=== PATIENT | female | born 1965 | race Two or more races ===

== ENCOUNTER 2017-01-13 08:42 | Emergency (ER) | payer MEDICAID ==
[~2017-01-13] VITALS: Ht 154.9 cm; Wt 76.2 kg
[~2017-01-13 08:42] MED LIST: IBUP-1955 PO; LEVO750T21 PO
--- NOTE | 2017-01-13 08:47 | NUR ---
RLQ ABDOMINAL PAIN RADIATES TO BACK, NAUSEA X 3 DAYS. AWAITING MD ORDER
[2017-01-13 09:20] LABS: BASOPHILS % (AUTO) 0.2 % (0.0-2.0); EOSINOPHILS % (AUTO) 0.4 % (0.0-6.0); HEMATOCRIT 40 % (33-45); HEMOGLOBIN 13.3 g/dL (11.5-14.8); LYMPHOCYTES # (AUTO) 1.7 /CMM (0.8-4.8); LYMPHOCYTES % (AUTO) 20.6 % (20.0-44.0); MEAN CORPUSCULAR HEMOGLOBIN 29 PG (26.0-33.0); MEAN CORPUSCULAR HGB CONC 34 g/dl (31.0-36.0); MEAN CORPUSCULAR VOLUME 86 fL (82-100); MONOCYTES # (AUTO) 0.7 /CMM (0.1-1.30); NEUTROPHILS # (AUTO) 5.8 /CMM (1.8-8.9); NEUTROPHILS % (AUTO) 70.8 % (43.0-81.0); PLATELET COUNT (AUTO) 225 /CMM (150-450); RDW COEFFICIENT OF VARIATION 13.4 (11.5-15.0); RED BLOOD CELL COUNT(AUTO) 4.59 MIL/uL (4.0-5.2); WHITE BLOOD COUNT (AUTO) 8.1 K/uL (4.3-11.0)
--- NOTE | 2017-01-13 09:21 | NUR ---
URINE SAMPLE COLLECTED SENT TO LAB
--- NOTE | 2017-01-13 09:21 | NUR ---
DR BRUNO AT BEDSIDE FOR EVAL
[2017-01-13] MEDS ORDERED: ONDANSETRON HCL/PF 4 MG/2 ML VIAL IVP ONE (09:30)
[2017-01-13] MEDS ORDERED: IV NS 0.9% 500 ML BAG IV ONE (09:30)
[2017-01-13] MEDS ORDERED: MORPHINE SULFATE INJ 2 MG/ML DISP.SYRIN IV ONE (09:30)
[2017-01-13 09:32] LABS: CALCIUM, SERUM 8.1 mg/dL (8.5-10.1); CREATININE 0.7 mg/dL (0.6-1.3); POTASSIUM 3.7 mmol/L (3.5-5.1)
[2017-01-13 09:32] LABS: APPEARANCE,URINE CLEAR (CLEAR); BILIRUBIN,URINE NEGATIVE (NEGATIVE); BLOOD, URINE TRACE-INTA Ery/uL (NEGATIVE); COLOR,URINE YELLOW (YELLOW); KETONES,URINE NEGATIVE (NEGATIVE); LEUKOCYTE ESTERASE ,URINE 1+ (NEGATIVE); NITRITE, URINE NEGATIVE (NEGATIVE); PROTEIN,URINE NEGATIVE (NEGATIVE); UGLUCOSE NEGATIVE (NEGATIVE); UROBILINOGEN,URINE 0.2 EU/dL (0.2)
--- NOTE | 2017-01-13 09:39 | NUR ---
WIRE FENCE ERECTOR AT BEDSIDE
[2017-01-13] MEDS ORDERED: ONDANSETRON HCL/PF 4 MG/2 ML VIAL ONE (09:41)
[2017-01-13] MEDS ORDERED: MORPHINE SULFATE INJ 4 MG/ML DISP.SYRIN ONE (09:41)
[2017-01-13 09:43] LABS: BACTERIA,URINE Few /HPF (None Seen); RBC,URINE 0-2 /HPF (0-2); SQUAMOUS EPITHELIAL CELL,UR Few /HPF (None Seen)
--- NOTE | 2017-01-13 12:07 | NUR ---
Patient discharged to home in stable condition. Written and verbal after care instructions given. Patient verbalizes understanding of instruction.
--- NOTE | 2017-01-13 12:07 | NUR ---
IV removed. Catheter intact and site benign. Pressure and 4x4 applied to site. No bleeding noted.
[2017-01-13 12:08] VITALS: BP 128/72
== END 2017-01-13 12:09 | disposition home or self-care (01) ==
LOC: ER 08:44
DX: N83.201 Unspecified ovarian cyst, right side (principal)
CPT/HCPCS: 36415; 71250; 74176; 76856; 80048; 81001; 84703; 85025; 87086; 96374; 96375; 99285; A4606; J2270; J2405; J7030; J7040; Z7610; 81000-TC

== ENCOUNTER 2017-05-12 08:12 | Emergency (ER) | payer MEDICAID ==
[~2017-05-12] VITALS: Ht 162.6 cm; Wt 59.0 kg
--- NOTE | 2017-05-12 08:30 | NUR ---
PATIENT TO ED DT ABDOMINAL PAIN, ON AND OFF X 6 DAYS. DENIES N/V. PATIENT APPEARS IN NO APPARENT DISTRESS. AFEBRILE. VSS
[2017-05-12] MEDS ORDERED: KETOROLAC TROMETHAMINE 15 MG/ML VIAL ONE (09:04)
[2017-05-12 09:19] LABS: BASOPHILS % (AUTO) 0.3 % (0.0-2.0); EOSINOPHILS # (AUTO) 0.1 /CMM (0.0-0.7); EOSINOPHILS % (AUTO) 0.7 % (0.0-6.0); HEMATOCRIT 42 % (33-45); HEMOGLOBIN 13.9 g/dL (11.5-14.8); LYMPHOCYTES # (AUTO) 1.5 /CMM (0.8-4.8); LYMPHOCYTES % (AUTO) 14.6 % (20.0-44.0); MEAN CORPUSCULAR HEMOGLOBIN 29 PG (26.0-33.0); MEAN CORPUSCULAR HGB CONC 34 g/dl (31.0-36.0); MEAN CORPUSCULAR VOLUME 85 fL (82-100); MONOCYTES # (AUTO) 0.6 /CMM (0.1-1.30); MONOCYTES % (AUTO) 5.4 % (2.0-12.0); NEUTROPHILS # (AUTO) 8.2 /CMM (1.8-8.9); PLATELET COUNT (AUTO) 268 /CMM (150-450); RDW COEFFICIENT OF VARIATION 12.3 (11.5-15.0); RED BLOOD CELL COUNT(AUTO) 4.89 MIL/uL (4.0-5.2); WHITE BLOOD COUNT (AUTO) 10.4 K/uL (4.3-11.0)
[2017-05-12 09:21] LABS: APPEARANCE,URINE Clear (CLEAR); BILIRUBIN,URINE Negative (NEGATIVE); BLOOD, URINE Small Ery/uL (NEGATIVE); COLOR,URINE Yellow (YELLOW); KETONES,URINE Negative (NEGATIVE); LEUKOCYTE ESTERASE ,URINE Trace (NEGATIVE); NITRITE, URINE Negative (NEGATIVE); PROTEIN,URINE Negative (NEGATIVE); UGLUCOSE Negative (NEGATIVE); UROBILINOGEN,URINE 0.2 EU/dL (0.2)
[2017-05-12 09:27] LABS: BACTERIA,URINE None seen /HPF (None Seen); SQUAMOUS EPITHELIAL CELL,UR Few /HPF (None Seen)
[2017-05-12 09:30] LABS: CALCIUM, SERUM 8.9 mg/dL (8.5-10.1); CREATININE 0.7 mg/dL (0.6-1.3); POTASSIUM 3.6 mmol/L (3.5-5.1)
[2017-05-12] MEDS ORDERED: KETOROLAC TROMETHAMINE INJ 30 MG/ML VIAL IV ONE (09:30)
[2017-05-12] MEDS ORDERED: IV NS 0.9% 1,000 ML BAG IV ONE (09:30)
--- NOTE | 2017-05-12 09:33 | NUR ---
PATIENT WAS TAKEN TO CT
[2017-05-12 09:39] LABS: ALBUMIN 3.9 g/dL (3.4-5.0); BILIRUBIN,TOTAL 0.4 mg/dL (0.2-1.0); TOTAL PROTEIN, SERUM 7.7 g/dL (6.4-8.2)
--- NOTE | 2017-05-12 09:40 | NUR ---
PT IS BACK FROM CT
[2017-05-12 10:39] VITALS: BP 112/70
--- NOTE | 2017-05-12 10:40 | NUR ---
IV removed. Catheter intact and site benign. Pressure and 4x4 applied to site. No bleeding noted.Patient discharged to home in stable condition. Written and verbal after care instructions given. Patient verbalizes understanding of instruction.
== END 2017-05-12 10:41 | disposition home or self-care (01) ==
LOC: ER 08:13
DX: N83.201 Unspecified ovarian cyst, right side (principal); R19.7 Diarrhea, unspecified; R10.30 Lower abdominal pain, unspecified; Z79.890 Hormone replacement therapy
CPT/HCPCS: 36415; 80048-TC; 80076-TC; 81000-TC; 83690-TC; 84703-TC; 85025-TC; A4606; J1885; J7030; Z7610

== ENCOUNTER 2019-03-11 15:20 | Emergency (ER) | payer MEDICAID ==
[~2019-03-11] VITALS: Ht 152.4 cm; Wt 77.6 kg
[2019-03-11 16:00] VITALS: BP 116/65
[2019-03-11] MEDS ORDERED: HYDROCODONE/APAP 5/325MG 1 EACH TABLET PO ONE (16:30)
[2019-03-11] MEDS ORDERED: NAPROXEN 250 MG TABLET PO ONE (16:30)
[2019-03-11] MEDS ORDERED: HYDROCODONE/APAP 5/325MG 1 EACH TABLET ONE (17:32)
[2019-03-11] MEDS ORDERED: NAPROXEN 250 MG TABLET ONE (17:33)
== END 2019-03-11 17:58 | disposition home or self-care (01) ==
LOC: ER 15:23
DX: M54.5 Low back pain (principal); Z98.890 Other specified postprocedural states; Z79.899 Other long term (current) drug therapy
CPT/HCPCS: 72100-TC; 72220-TC

== ENCOUNTER 2019-05-09 12:26 | Emergency (ER) | payer MEDICAID ==
[~2019-05-09] VITALS: Ht 152.4 cm; Wt 78.0 kg
--- NOTE | 2019-05-09 12:38 | NUR ---
"c/o abd pain RUQ and RLQ pulsating non radiating x 6 months, worst pain yesterday and today 10/10 ps. no nausea vomiting and diarrhea" pt aaox4, -sob, nad noted, vss, pending md jones
[2019-05-09] MEDS ORDERED: IV NS 0.9% 1,000 ML BAG IV ONE (13:00)
[2019-05-09 13:21] LABS: BASOPHILS % (AUTO) 0.6 % (0.0-2.0); EOSINOPHILS % (AUTO) 0.9 % (0.0-6.0); HEMATOCRIT 42 % (33-45); LYMPHOCYTES # (AUTO) 2.1 /CMM (0.8-4.8); LYMPHOCYTES % (AUTO) 28.7 % (20.0-44.0); MEAN CORPUSCULAR HGB CONC 33 g/dl (31.0-36.0); MEAN CORPUSCULAR VOLUME 88 fL (82-100); MONOCYTES # (AUTO) 0.5 /CMM (0.1-1.30); MONOCYTES % (AUTO) 6.6 % (2.0-12.0); NEUTROPHILS # (AUTO) 4.6 /CMM (1.8-8.9); NEUTROPHILS % (AUTO) 63.2 % (43.0-81.0); PLATELET COUNT (AUTO) 272 /CMM (150-450); RED BLOOD CELL COUNT(AUTO) 4.81 MIL/uL (4.0-5.2); WHITE BLOOD COUNT (AUTO) 7.2 K/uL (4.3-11.0)
[2019-05-09 13:29] LABS: CALCIUM, SERUM 9.4 mg/dL (8.5-10.1); CREATININE 0.6 mg/dL (0.6-1.3); POTASSIUM 3.6 mmol/L (3.5-5.1)
[2019-05-09 13:41] LABS: ALBUMIN 4.1 g/dL (3.4-5.0); BILIRUBIN,DIRECT 0.1 mg/dL (0.0-0.2); BILIRUBIN,TOTAL 0.6 mg/dL (0.2-1.0); TOTAL PROTEIN, SERUM 7.8 g/dL (6.4-8.2)
[2019-05-09 14:04] LABS: APPEARANCE,URINE Clear (CLEAR); BILIRUBIN,URINE Negative (NEGATIVE); BLOOD, URINE Small Ery/uL (NEGATIVE); COLOR,URINE Yellow (YELLOW); KETONES,URINE Negative (NEGATIVE); LEUKOCYTE ESTERASE ,URINE Negative (NEGATIVE); NITRITE, URINE Negative (NEGATIVE); PROTEIN,URINE Negative (NEGATIVE); UGLUCOSE Negative (NEGATIVE); UROBILINOGEN,URINE 0.2 EU/dL (0.2)
[2019-05-09 14:05] LABS: BACTERIA,URINE Few /HPF (None Seen); SQUAMOUS EPITHELIAL CELL,UR Few /HPF (None Seen); WBC,URINE 0-2 /HPF (0-3)
--- NOTE | 2019-05-09 14:40 | NUR ---
Patient discharged to home in stable condition. Written and verbal after care instructions given. Patient verbalizes understanding of instruction. IV removed. Catheter intact and site benign. Pressure and 4x4 applied to site. No bleeding noted.
[2019-05-09 14:42] VITALS: BP 122/80
== END 2019-05-09 14:42 | disposition home or self-care (01) ==
LOC: ER 12:26
DX: R10.11 Right upper quadrant pain (principal); R11.0 Nausea; Z98.890 Other specified postprocedural states; Z79.899 Other long term (current) drug therapy
CPT/HCPCS: 36415; 76705; 80048; 80076; 81001; 83690; 84703; 85025; 99284; J7030; 81000-TC

== ENCOUNTER 2019-09-16 01:26 | Inpatient (IN) | payer MEDICAID ==
[~2019-09-16] VITALS: Ht 152.4 cm; Wt 75.7 kg
--- NOTE | 2019-09-16 01:30 | NUR ---
PT BIB C/O LOWER ABDOMINAL PAIN SINCE WEDNESDAY. PT IS AAOX4, NOT IN RESPIRATORY DISTRESS, V/S STABLE, KEPT RESTED AND COMFORTABLE, WILL CONTINUE TO MONITOR.
--- NOTE | 2019-09-16 01:35 | NUR ---
URINE SPECIMEN COLLECTED AND SENT TO LAB.
--- NOTE | 2019-09-16 01:45 | NUR ---
SEEN AND EXAMINED BY
[2019-09-16] MEDS ORDERED: MORPHINE SULFATE INJ 4 MG/ML DISP.SYRIN ONE (01:49)
--- NOTE | 2019-09-16 01:55 | NUR ---
IV LINE ESTABLISHED, BLOOD DRAWN AND SENT TO LAB.
[2019-09-16] MEDS ORDERED: MORPHINE SULFATE INJ 2 MG/ML DISP.SYRIN IV ONE (02:00)
[2019-09-16 02:44] LABS: BASOPHILS % (AUTO) 0.1 % (0.0-2.0); EOSINOPHILS % (AUTO) 0.2 % (0.0-6.0); HEMATOCRIT 39 % (33-45); LYMPHOCYTES # (AUTO) 1.2 /CMM (0.8-4.8); LYMPHOCYTES % (AUTO) 9.3 % (20.0-44.0); MEAN CORPUSCULAR HGB CONC 34 g/dl (31.0-36.0); MEAN CORPUSCULAR VOLUME 87 fL (82-100); MONOCYTES # (AUTO) 1.1 /CMM (0.1-1.30); MONOCYTES % (AUTO) 8.4 % (2.0-12.0); NEUTROPHILS # (AUTO) 10.6 /CMM (1.8-8.9); PLATELET COUNT (AUTO) 247 /CMM (150-450); RED BLOOD CELL COUNT(AUTO) 4.44 MIL/uL (4.0-5.2); WHITE BLOOD COUNT (AUTO) 12.9 K/uL (4.3-11.0)
[2019-09-16 02:46] LABS: CALCIUM, SERUM 8.7 mg/dL (8.5-10.1); CREATININE 0.7 mg/dL (0.6-1.3); POTASSIUM 3.3 mmol/L (3.5-5.1)
[2019-09-16 02:52] LABS: ALBUMIN 3.6 g/dL (3.4-5.0); BILIRUBIN,DIRECT 0.1 mg/dL (0.0-0.2); BILIRUBIN,TOTAL 0.6 mg/dL (0.2-1.0); TOTAL PROTEIN, SERUM 7.4 g/dL (6.4-8.2)
--- NOTE | 2019-09-16 02:53 | NUR ---
RADIOLOGY INFORMED OF LAB RESULT FOR CT W/ CONT
[2019-09-16 03:37] LABS: APPEARANCE,URINE CLEAR (CLEAR); BILIRUBIN,URINE NEGATIVE (NEGATIVE); BLOOD, URINE SMALL Ery/uL (NEGATIVE); COLOR,URINE YELLOW (YELLOW); KETONES,URINE NEGATIVE (NEGATIVE); LEUKOCYTE ESTERASE ,URINE NEGATIVE (NEGATIVE); NITRITE, URINE NEGATIVE (NEGATIVE); PROTEIN,URINE NEGATIVE (NEGATIVE); UGLUCOSE NEGATIVE (NEGATIVE); UROBILINOGEN,URINE 0.2 EU/dL (0.2)
[2019-09-16] MEDS ORDERED: IOHEXOL-300 100 ML VIAL IV ONE (03:45)
[2019-09-16] MEDS ORDERED: CT SWABBABLE VALVE TRANS SET 1 EA INFUS.SET MC ONE (03:45)
[2019-09-16] MEDS ORDERED: IV NS 0.9% 250 ML IV ONE (03:45)
[2019-09-16] MEDS ORDERED: KETOROLAC TROMETHAMINE 15 MG/ML VIAL ONE (04:07)
[2019-09-16] MEDS ORDERED: KETOROLAC TROMETHAMINE INJ 30 MG/ML VIAL IV ONE (04:30)
[2019-09-16] MEDS ORDERED: CIPROFLOXACIN IV RTU 400 MG in PREMIX 1 EA IV SCH (05:00)
[2019-09-16] MEDS ORDERED: FLAGYL/NS RTU 500 MG/100 ML PIGGYBACK IV ONE (05:00)
[2019-09-16] MEDS ORDERED: CIPROFLOXACIN IV RTU 200 ML IV ONE (05:05)
[2019-09-16] MEDS ORDERED: METRONIDAZOLE 500MG/ NS 100ML 100 ML IV ONE (05:05)
--- NOTE | 2019-09-16 06:05 | NUR ---
SPOKED TO CARLOS CUI, VERBAL AUTH GIVEN.
--- NOTE | 2019-09-16 06:11 | NUR ---
JANETH ZAPATA PAGED PER ELIZABETH SCHRADER ORDER.
--- NOTE | 2019-09-16 06:40 | NUR ---
ER TALKING TO JANETH ZAPATA REGARDING PT ADMISSION.
--- NOTE | 2019-09-16 06:47 | NUR ---
REPORT GIVEN TO ARNALDO CRAIG FOR HUGO. TO MS 308-1
--- NOTE | 2019-09-16 07:05 | NUR ---
ER MD SAMUEL Neff SPOKE TO DR. HERNDON REGARDING PT ADMISSION. WILL TRANSPORT PT TO M/S ROOM 308-1.
--- NOTE | 2019-09-16 07:18 | NUR ---
PT BEING TRANSPORTED TO UNIT ON WHEELCHAIR W/ EMT. PT IS STABLE FOR TRANSPORT. NO DISTRESS NOTED.
[2019-09-16] MEDS ORDERED: ZOLPIDEM TARTRATE 5 MG TABLET PO PRN (07:30)
[2019-09-16] MEDS ORDERED: Z GUARD REMEDY 2 OZ OINT TP PRN (07:30)
[2019-09-16] MEDS ORDERED: HYDROCODONE/APAP 5/325MG 1 EACH TABLET PO PRN (07:30)
[2019-09-16] MEDS ORDERED: MAGNESIUM HYDROXIDE 30 ML UDC PO PRN (07:30)
[2019-09-16] MEDS ORDERED: ACETAMINOPHEN 325 MG TABLET PO PRN (07:30)
[2019-09-16] MEDS ORDERED: ONDANSETRON HCL/PF 4 MG/2 ML VIAL IVP PRN (07:30)
--- NOTE | 2019-09-16 07:30 | NUR ---
MS RADIUS CORNER MACHINE OPERATOR NOTES ADMITTED PT FROM ER WITH DX OF DIVERTICULITIS C/O GEN ABD PAIN,LT LOWER EPIGASTRIC PAIN 8/10 IN ER.PTIS ALERT AND ORIENTED X4.VERBALLY RESPONSIVE.AMBULATES AD SETH WITH STEADY GAIT.SKIN INTACT.WITH IV H/L TO LT AC PATENT AND INTACT.ON NPO.WITH BRP. DENIES ANY DISTRESS IN ROOM AIR. WILL MONITOR. CALL LIGHT PLACED WITHIN REACH.
[2019-09-16 08:00] VITALS: BP 105/68
[2019-09-16] MEDS ORDERED: ACET-868 PO (08:18)
[2019-09-16] MEDS: IV NS 0.9% 1,000 ML IV PRN (09:05)
[2019-09-16] MEDS: MORPHINE SULFATE INJ 2 MG/ML DISP.SYRIN IV PRN ×2 (09:06→20:33)
[2019-09-16] MEDS ORDERED: POTASSIUM CL. PREMIX PERIPHER. 50 ML IV SCH (10:30)
[2019-09-16] MEDS ORDERED: POTASSIUM CHLORIDE 20 MEQ TAB.PRT.SR PO SCH ×2 (10:30→12:30)
--- NOTE | 2019-09-16 10:40 | NUR ---
STARTED INFUSING KCL+IV AND PT IS SO SENSITIVE C/O BURNING IN HER IV SITE.ADJUSTED K+IV INFUSION SLOWLY FOR PT'S COMFORT.
--- NOTE | 2019-09-16 12:20 | NUR ---
PT WAS CRYING IN SEVERE PAIN FROM THE POTASSIUM IV INFUSION EVEN IN A SLOW RATE. PT IS ON CLEAR LIQUID DIET NOW.NOTIFIED PHARMACY AND SPOKE TO ELLY,PHARMACIST WHO CONVERTED IT TO P.Edwin SCHRADER AWARE.
[2019-09-16] MEDS: METRONIDAZOLE 500MG/ NS 100ML 500 MG in PREMIX 1 EA IV SCH ×2 (13:27→20:33)
[2019-09-16 16:00] VITALS: BP 106/63
--- NOTE | 2019-09-16 19:05 | NUR ---
MS RN NOTES RECEIVED PT IN BED AWAKE AND ABLE TO MAKE NEEDS KNOWN. PT A/O X3. RESPIRATIONS EVEN AND UNLABORED WITH NO S/S OF ACUTE DISTRESS OR SOB NOTED. NO COMPLAINTS OF PAIN AT THIS TIME. PT NOTED WITH LAC #18G PATENT AND INTACT INFUSING NS @75CC/HR. SAFETY MEASURES IN PLACE WITH BED IN LOWEST LOCKED POSITION WITH SIDE RAILS UP X2. CALL LIGHT WITHIN REACH. WILL CONTINUE TO MONITOR.
--- NOTE | 2019-09-16 19:31 | NUR ---
PT RESTING IN BED DENYING ANY PAIN OR DISTRESS.WITH ONGOING IVF NS AT 75 ML/HR INFUSING WELL.CALL LIGHT PLACED WITHIN REACH.
[2019-09-16 20:00] VITALS: BP 113/72
[2019-09-17] MEDS: IV NS 0.9% 1,000 ML IV PRN (02:20)
[2019-09-17] MEDS: METRONIDAZOLE 500MG/ NS 100ML 500 MG in PREMIX 1 EA IV SCH ×3 (05:33→20:35)
[2019-09-17 06:03] LABS: BASOPHILS % (AUTO) 0.3 % (0.0-2.0); EOSINOPHILS % (AUTO) 1.8 % (0.0-6.0); HEMATOCRIT 37 % (33-45); HEMOGLOBIN 12.2 g/dL (11.5-14.8); LYMPHOCYTES # (AUTO) 1.6 /CMM (0.8-4.8); LYMPHOCYTES % (AUTO) 21.2 % (20.0-44.0); MEAN CORPUSCULAR HGB CONC 33 g/dl (31.0-36.0); MEAN CORPUSCULAR VOLUME 88 fL (82-100); MONOCYTES # (AUTO) 0.6 /CMM (0.1-1.30); MONOCYTES % (AUTO) 7.6 % (2.0-12.0); NEUTROPHILS # (AUTO) 5.2 /CMM (1.8-8.9); NEUTROPHILS % (AUTO) 69.1 % (43.0-81.0); PLATELET COUNT (AUTO) 232 /CMM (150-450); WHITE BLOOD COUNT (AUTO) 7.5 K/uL (4.3-11.0)
[2019-09-17 06:30] LABS: CALCIUM, SERUM 7.9 mg/dL (8.5-10.1); CREATININE 0.6 mg/dL (0.6-1.3); MAGNESIUM 2.2 mg/dL (1.8-2.4); PHOSPHORUS 3.2 mg/dL (2.5-4.9); POTASSIUM 3.4 mmol/L (3.5-5.1)
--- NOTE | 2019-09-17 07:09 | NUR ---
MS RN NOTES PT IN BED AWAKE AND ABLE TO MAKE NEEDS KNOWN. PT A/O X3. RESPIRATIONS EVEN AND UNLABORED WITH NO S/S OF ACUTE DISTRESS OR SOB NOTED THROUGHOUT SHIFT. NO COMPLAINTS OF PAIN AT THIS TIME. PT NOTED WITH LAC #18G PATENT AND INTACT INFUSING NS @75CC/HR. SAFETY MEASURES IN PLACE WITH BED IN LOWEST LOCKED POSITION WITH SIDE RAILS UP X2. CALL LIGHT WITHIN REACH. WILL ENDORSE TO ONCOMING NURSE FOR HUGO.
--- NOTE | 2019-09-17 07:22 | NUR ---
rn opening notes Patient received on room air, no sob noted, patient denies pain at this time and states that she is comfortable. Clear liquid diet for now, L AC 18 gauge with NS @ [address] Kaufman consult pending. Bed at the lowest setting, call light within reach, side rails up x2.
--- NOTE | 2019-09-17 07:23 | NUR ---
rn opening notes Patient received on a ventilator, no sob noted, portex [address] GT glucerna running @ 70 ml per hour with plans to run for the whole shift. R PHUONG partida NS @ 100 ml per hour. Bed at the lowest setting, call light within reach, side rails up x2. R/O covid 19 at this time. Addendum: 09/17/19 at 1116 by JON PULIDO RN AMMENChasity. ERROR. WRONG PATIENT. DELETE
[2019-09-17 08:00] VITALS: BP 101/63
[2019-09-17] MEDS ORDERED: POTASSIUM CHLORIDE 20 MEQ TAB.PRT.SR PO ONE (09:00)
[2019-09-17 16:00] VITALS: BP 115/72
[2019-09-17] MEDS: CIPROFLOXACIN IV RTU 400 MG in PREMIX 1 EA IV SCH (17:14)
--- NOTE | 2019-09-17 17:26 | NUR ---
rn closing notes Patient remains on room air, no sob noted, a/o x3 and denies pain at this time. Ambulatory with skin intact. L CA 18 NS @ 75 ml per hour. Potassium replaced today. Stool OB pending with no sample at this time time. Patient able to ambulate with good balance today and was seen mostly sitting on her chair in her room. Bed at the lowest setting, call light within reach, side rails up x2. Will give report to NOC RN for HUGO bedside.
--- NOTE | 2019-09-17 19:20 | NUR ---
RN PM OPENING NOTES REPORT RECIEVED FROM JON RN. PATIENT IN BED IN NO APPARENT DISTRESS. TOLERATING CLEAR LIQUIDS. DENIES ABDOMINAL PAIN . LEFT AC 18 GUAGE WITH NO S/S OF INFILTRATION. VERBALIZED UNDERSTANDING TO CALL FOR ASSISTANCE IF NEEDED. BED DOWN AND LOCKED CALL LIGHT IN REACH.
[2019-09-17 20:00] VITALS: BP 116/62
[2019-09-18] MEDS: METRONIDAZOLE 500MG/ NS 100ML 500 MG in PREMIX 1 EA IV SCH (05:00)
[2019-09-18 05:06] LABS: CANCER AG, 125 9.8 U/mL (0.0-38.1)
--- NOTE | 2019-09-18 05:53 | NUR ---
RN PM CLOSING NOTES PATIENT SITTING AT THE BED SIDE IN NO APPARENT DISTRESS. TOLERATING CLEAR LIQUIDS. DENIES ABDOMINAL PAIN. LEFT AC 18 GUAGE WITH NO S/S OF INFILTRATION INFUSING ABX AND IVF. VERBALIZED UNDERSTANDING TO CALL FOR ASSISTANCE IF NEEDED. BED DOWN AND LOCKED CALL LIGHT IN REACH.
[2019-09-18] MEDS: CIPROFLOXACIN IV RTU 400 MG in PREMIX 1 EA IV SCH (06:15)
--- NOTE | 2019-09-18 07:10 | NUR ---
MS RN OPENING NOTES RECEIVED PT AWAKE IN BED AT THIS TIME WITH HOB ELEVATED. AOX3. PT APPEARS COMFORTABLE WITH NO S/S OF ANY ACUTE DISTRESS. PT DENIES PAIN AT THIS TIME. IV ACCES IN LEFT AC G#18 INTACT, PATENT AND INFUSING NS@75ML/HR WELL. PT IS ABLE TO VERBALIZED NEEDS AND UNDERSTAND TO CALL FOR ASSISTANCE WITH ADL's AND FOR BATHROOM PRIVILEGES. SAFETY PRECAUTIONS IN PLACE, BED IN LOWEST LOCKED POSITION, SIDE RAILS UP X3. CALL LIGHT WITHIN REACH. WILL CONTINUE TO MONITOR
[2019-09-18 08:00] VITALS: BP 106/66
[2019-09-18] MEDS ORDERED: METR500T PO (09:35)
[2019-09-18] MEDS ORDERED: CIPR-262 PO (09:35)
[2019-09-18] MEDS ORDERED: IOHEXOL-300 100 ML VIAL IV ONE (10:53)
[2019-09-18] MEDS ORDERED: CT SWABBABLE VALVE TRANS SET 1 EA INFUS.SET MC ONE (10:53)
[2019-09-18] MEDS ORDERED: IV NS 0.9% 250 ML IV ONE (10:53)
--- NOTE | 2019-09-18 11:00 | NUR ---
rn notes patient sheepskin pickler at this time Stat CT of pelvic, and abdomen for re-evaluation of abscess with contrast per hospitalist orders. patient stable.
--- NOTE | 2019-09-18 11:18 | NUR ---
rn notes patient back from CT , plan is discharge patient home if result is stable.
[2019-09-18 11:31] LABS: BASOPHILS % (AUTO) 0.5 % (0.0-2.0); EOSINOPHILS % (AUTO) 1.9 % (0.0-6.0); HEMATOCRIT 38 % (33-45); HEMOGLOBIN 12.6 g/dL (11.5-14.8); LYMPHOCYTES # (AUTO) 1.5 /CMM (0.8-4.8); LYMPHOCYTES % (AUTO) 24.8 % (20.0-44.0); MEAN CORPUSCULAR HGB CONC 33 g/dl (31.0-36.0); MEAN CORPUSCULAR VOLUME 88 fL (82-100); MONOCYTES # (AUTO) 0.4 /CMM (0.1-1.30); NEUTROPHILS # (AUTO) 4.1 /CMM (1.8-8.9); NEUTROPHILS % (AUTO) 66.8 % (43.0-81.0); PLATELET COUNT (AUTO) 288 /CMM (150-450); RED BLOOD CELL COUNT(AUTO) 4.29 MIL/uL (4.0-5.2); WHITE BLOOD COUNT (AUTO) 6.1 K/uL (4.3-11.0)
[2019-09-18 11:35] LABS: CALCIUM, SERUM 8.7 mg/dL (8.5-10.1); CREATININE 0.7 mg/dL (0.6-1.3); POTASSIUM 3.8 mmol/L (3.5-5.1)
[2019-09-18 11:40] LABS: ALBUMIN 3.3 g/dL (3.4-5.0); BILIRUBIN,TOTAL 0.3 mg/dL (0.2-1.0); TOTAL PROTEIN, SERUM 7.2 g/dL (6.4-8.2)
[2019-09-18] MEDS ORDERED: METRONIDAZOLE 500 MG TABLET PO SCH (13:00)
--- NOTE | 2019-09-18 15:05 | NUR ---
FINANCE CONSULTANT NOTES PATIENT DISCHARGE AT THIS TIME GOING HOME. PATIENT STABLE, REFUSED PAIN, V/S STABLE. MED RECONCILIATION AND DISCHARGE ORDER REVIEWED AND EXPLAINED TO PATIENT . PATIENT VERBALIZED UNDERSTANDING. BELONGING WITH THE PATIENT. PRESCRIPTION ELECTRONICALLY DONE BY HOSPITALIST PATIENT WILL SHINGLE BOLT CUTTER FROM [facility]. DIET EDUCATION GIVEN BY PRODUCE MANAGER. PATIENT SIGN PAPERWORK, WILL TAKE PRESCRIBED TWO ANTIBIOTICS AND FOLLOW PRIMARY MD. ESCORTED PATIENT TO THE LOBBY FOR SAFETY . PATIENT SHINGLE BOLT CUTTER BY DAUGHTER.
[2019-09-18] MEDS ORDERED: CIPROFLOXACIN HCL 250 MG TABLET PO SCH (18:00)
== END 2019-09-18 14:55 | disposition home or self-care (01) | DRG 244 ==
LOC: ER 01:29 → MED 07:04
PROVIDERS: ADMIT Nurse Practitioner Acute Care; ATTEND Nurse Practitioner Acute Care
DX: K57.20 Diverticulitis of large intestine with perforation and abscess without bleeding (principal); E87.6 Hypokalemia; Z98.890 Other specified postprocedural states; W34.00XS Accidental discharge from unspecified firearms or gun, sequela; Z87.828 Personal history of other (healed) physical injury and trauma; N83.202 Unspecified ovarian cyst, left side; R93.89 Abnormal findings on diagnostic imaging of other specified body structures
CPT/HCPCS: 36415; 71045-TC; 76856-TC; 80048-TC; 80053-TC; 80061-TC; 80076-TC; 81000-TC; 82378; 83615-TC; 83690-TC; 83735-TC; 84100-TC; 84703-TC; 85025-TC; 86304; 87081-TC; 93307-TC; A4216; G0378; J0744; J1885; J2270; J3480; J3490; J7030; J7050; Q9967

== ENCOUNTER 2020-08-12 17:30 | Emergency (ER) | payer MEDICAID ==
[~2020-08-12] VITALS: Ht 154.9 cm; Wt 77.1 kg
[~2020-08-12 17:30] MED LIST changes: +ACET-868 PO; +CIPR-262 PO; -IBUP-1955 PO; -LEVO750T21 PO; +METR500T PO
[2020-08-12] MEDS ORDERED: IBUPROFEN 600 MG TABLET PO ONE (18:00)
[2020-08-12] MEDS ORDERED: IBUPROFEN 600 MG TABLET ONE (18:04)
--- NOTE | 2020-08-12 18:10 | NUR ---
Patient came in to the er c/o left leg pain x 1 month 10/10 pain scale, denies injury or trauma. On room air, breathing evenly and unlabored. Kept comfortable, will continue to monitor accordingly.
[2020-08-12] MEDS ORDERED: NAPR-1009 PO (19:01)
[2020-08-12] MEDS ORDERED: TRAM50TA2 PO (19:01)
[2020-08-12 19:06] VITALS: BP 120/71
--- NOTE | 2020-08-12 19:07 | NUR ---
Patient discharged to home in stable condition. Written and verbal after care instructions given. Patient verbalizes understanding of instruction.
== END 2020-08-12 19:06 | disposition home or self-care (01) ==
LOC: ER 17:33
DX: M25.562 Pain in left knee (principal); Z98.890 Other specified postprocedural states; Z79.899 Other long term (current) drug therapy
CPT/HCPCS: 73564-TC

== ENCOUNTER 2021-07-19 15:42 | Emergency (ER) | payer MEDICAID ==
[~2021-07-19] VITALS: Ht 152.4 cm; Wt 68.0 kg
[~2021-07-19 15:42] MED LIST changes: +NAPR-1009 PO; +TRAM50TA2 PO
[2021-07-19 16:52] VITALS: BP 125/89
[2021-07-19] MEDS ORDERED: IBUP-1957 PO (17:06)
--- NOTE | 2021-07-19 17:20 | NUR ---
VELCRO WRIST SPLINT APPLIED ON THE R HAND.
--- NOTE | 2021-07-19 17:25 | NUR ---
Patient discharged to home in stable condition. Written and verbal after care instructions given. Patient verbalizes understanding of instruction.
== END 2021-07-19 17:26 | disposition home or self-care (01) ==
LOC: ER 15:43
DX: G56.01 Carpal tunnel syndrome, right upper limb (principal); Z87.828 Personal history of other (healed) physical injury and trauma; Z79.891 Long term (current) use of opiate analgesic; Z79.1 Long term (current) use of non-steroidal anti-inflammatories (NSAID); Z79.899 Other long term (current) drug therapy

== ENCOUNTER 2024-02-09 03:45 | Emergency (ER) | payer MEDICAID ==
[~2024-02-09] VITALS: Ht 154.9 cm; Wt 77.1 kg
[~2024-02-09 03:45] MED LIST changes: +CYCL5TAB PO; +IBUP-1955 PO; +IBUP-1957 PO; +LIDO30AD10 TP
[2024-02-09 04:34] LABS: BASOPHILS % (AUTO) 0.4 % (0.0-2.0); EOSINOPHILS # (AUTO) 0.1 K/uL (0.0-0.7); EOSINOPHILS % (AUTO) 1.8 % (0.0-6.0); HEMATOCRIT 39 % (33-45); HEMOGLOBIN 12.8 g/dL (11.5-14.8); LYMPHOCYTES # (AUTO) 2.4 K/uL (0.8-4.8); LYMPHOCYTES % (AUTO) 33.7 % (20.0-44.0); MEAN CORPUSCULAR HEMOGLOBIN 29 PG (26.0-33.0); MEAN CORPUSCULAR HGB CONC 33 g/dl (31.0-36.0); MEAN CORPUSCULAR VOLUME 86 fL (82-100); MONOCYTES # (AUTO) 0.4 K/uL (0.1-1.30); MONOCYTES % (AUTO) 5.6 % (2.0-12.0); NEUTROPHILS # (AUTO) 4.2 K/uL (1.8-8.9); NEUTROPHILS % (AUTO) 58.5 % (43.0-81.0); PLATELET COUNT (AUTO) 226 K/uL (150-450); RED BLOOD CELL COUNT(AUTO) 4.47 MIL/uL (4.0-5.2); RED CELL DISTRIBUTION WIDTH 13.7 % (11.5-15.0); WHITE BLOOD COUNT (AUTO) 7.1 K/uL (4.3-11.0)
[2024-02-09 04:42] LABS: CALCIUM, SERUM 9.3 mg/dL (8.5-10.1); CARBON DIOXIDE 23 mmol/L (21-32); CHLORIDE 104 mmol/L (98-107); CREATININE 0.8 mg/dL (0.6-1.3); GLUCOSE 114 mg/dL (74-106); POTASSIUM 3.2 mmol/L (3.5-5.1); SODIUM SERUM 137 mmol/L (136-145); UREA NITROGEN, BLOOD 19 mg/dL (7-18)
[2024-02-09 04:48] LABS: D-DIMER 0.26 mg/L(FEU (0.17-0.50); INR 0.97 (0.91-1.10); PARTIAL THROMBOPLASTIN TIME 21.7 SEC (24.3-34.3); PROTHROMBIN TIME 10.3 SECS (9.2-11.1)
[2024-02-09 04:49] LABS: ALANINE AMINOTRANSFERASE 20 U/L (12-78); ALBUMIN 3.7 g/dL (3.4-5.0); ALKALINE PHOSPHATASE 89 U/L (46-116); ASPARTATE AMINOTRANSFERASE 15 U/L (15-37); BILIRUBIN,DIRECT 0.1 mg/dL (0.0-0.2); BILIRUBIN,TOTAL 0.7 mg/dL (0.2-1.0)
[2024-02-09] MEDS ORDERED: KETOROLAC TROMETHAMINE INJ 30 MG/ML VIAL ONE (05:07)
[2024-02-09] MEDS: KETOROLAC TROMETHAMINE 15 MG/ML VIAL IV ONE (05:10)
--- NOTE | 2024-02-09 05:15 | NUR ---
Patient discharged to home in stable condition. Written and verbal after care instructions given. Patient verbalizes understanding of instruction.
[2024-02-09 05:36] VITALS: BP 132/76; TEMP 98.1; O2SAT 98
== END 2024-02-09 05:36 | disposition home or self-care (01) ==
LOC: ER 03:47
DX: F41.9 Anxiety disorder, unspecified (principal); R07.89 Other chest pain; Z98.890 Other specified postprocedural states
CPT/HCPCS: 99285; 96374; 71045; 93005; 85025; 80048; 80076; 85378; 36415; 84484; 85730; J1885

== ENCOUNTER 2025-05-14 00:45 | Inpatient (IN) | payer MEDICAID ==
[~2025-05-14] VITALS: Ht 154.9 cm; Wt 69.2 kg
[2025-05-14] MEDS ORDERED: IOHEXOL-350 100 ML VIAL IV ONE (01:27)
[2025-05-14] MEDS ORDERED: CT SWABBABLE VALVE TRANS SET 1 EA INFUS.SET MC ONE (01:27)
[2025-05-14] MEDS ORDERED: IV NS 0.9% 250 ML IV ONE (01:27)
[2025-05-14 01:28] LABS: PLATELET COUNT (AUTO) 267 K/uL (150-450); RED BLOOD CELL COUNT(AUTO) 4.84 MIL/uL (4.0-5.2); RED CELL DISTRIBUTION WIDTH 14.4 % (11.5-15.0); WHITE BLOOD COUNT (AUTO) 7.4 K/uL (4.3-11.0)
[2025-05-14 01:35] LABS: CALCIUM, SERUM 8.6 mg/dL (8.5-10.1); CREATININE 0.7 mg/dL (0.6-1.3); SODIUM SERUM 141 mmol/L (136-145); UREA NITROGEN, BLOOD 19 mg/dL (7-18)
[2025-05-14 01:39] LABS: INR 0.96 (0.91-1.10)
[2025-05-14 01:41] LABS: ASPARTATE AMINOTRANSFERASE 15 U/L (15-37); TOTAL PROTEIN, SERUM 7.8 g/dL (6.4-8.2)
[2025-05-14 01:47] LABS: APPEARANCE,URINE CLEAR (CLEAR); BLOOD, URINE TRACE-INTA Ery/uL (NEGATIVE); LEUKOCYTE ESTERASE ,URINE TRACE (NEGATIVE); NITRITE, URINE NEGATIVE (NEGATIVE); UGLUCOSE NEGATIVE (NEGATIVE)
[2025-05-14 02:01] LABS: ADD URINE CULTURE NO; SQUAMOUS EPITHELIAL CELL,UR 0-2 /HPF (None Seen)
[2025-05-14] MEDS ORDERED: ASPIRIN 325 MG TABLET ONE (02:35)
[2025-05-14] MEDS: ASPIRIN 325 MG TABLET PO ONE (02:38)
[2025-05-14] MEDS ORDERED: ACETAMINOPHEN 325 MG TABLET PO PRN (06:30)
[2025-05-14] MEDS ORDERED: ONDANSETRON HCL/PF 4 MG/2 ML VIAL IVP PRN (06:30)
[2025-05-14] MEDS ORDERED: MAG HYDROX/AL HYDROX/SIMETH 30 ML UDC PO PRN (06:30)
[2025-05-14] MEDS ORDERED: METH500T6 PO (07:57)
[2025-05-14 08:00] VITALS: BP 119/71; TEMP 97.2; O2SAT 100
[2025-05-14 08:10] VITALS: BP 119/71; TEMP 97.2; O2SAT 100
[2025-05-14] MEDS: ENOXAPARIN SODIUM 40 MG/0.4 ML DISP.SYRIN SQ SCH (08:36)
[2025-05-14] MEDS: ASPIRIN 81 MG TAB.CHEW PO SCH (08:37)
[2025-05-14] MEDS ORDERED: METHOCARBAMOL (500MG) 500 MG TABLET PO PRN (15:00)
[2025-05-14 20:00] VITALS: BP 104/65; TEMP 97.7; O2SAT 98
[2025-05-14] MEDS: ATORVASTATIN 10 MG TABLET PO SCH (21:35)
[2025-05-15] VITALS: BP 107/71; TEMP 97.9; O2SAT 99
[2025-05-15 04:00] VITALS: BP 118/83; TEMP 97.5; O2SAT 99
[2025-05-15 07:33] LABS: PLATELET COUNT (AUTO) 243 K/uL (150-450); RED BLOOD CELL COUNT(AUTO) 4.53 MIL/uL (4.0-5.2); RED CELL DISTRIBUTION WIDTH 14.4 % (11.5-15.0); WHITE BLOOD COUNT (AUTO) 4.3 K/uL (4.3-11.0)
[2025-05-15 07:58] LABS: LDL 125.0 mg/dL (0-99)
[2025-05-15 08:00] VITALS: BP 112/69; TEMP 97.7; O2SAT 100
[2025-05-15 08:06] LABS: CALCIUM, SERUM 8.9 mg/dL (8.5-10.1); CREATININE 0.5 mg/dL (0.6-1.3); PHOSPHORUS 3.7 mg/dL (2.5-4.9); SODIUM SERUM 141.0 mmol/L (136-145); UREA NITROGEN, BLOOD 20.0 mg/dL (7-18)
[2025-05-15 16:00] VITALS: BP 93/61; TEMP 97.9; O2SAT 98
[2025-05-15 21:06] VITALS: BP 101/62; TEMP 98.1; O2SAT 97
[2025-05-16 00:39] VITALS: BP 108/65; TEMP 97.9; O2SAT 98
[2025-05-16 04:00] VITALS: BP 99/67; TEMP 97.5; O2SAT 98
[2025-05-16 06:18] LABS: PLATELET COUNT (AUTO) 239 K/uL (150-450); RED BLOOD CELL COUNT(AUTO) 4.46 MIL/uL (4.0-5.2); RED CELL DISTRIBUTION WIDTH 14.2 % (11.5-15.0); WHITE BLOOD COUNT (AUTO) 5.1 K/uL (4.3-11.0)
[2025-05-16 06:42] LABS: CALCIUM, SERUM 8.4 mg/dL (8.5-10.1); CREATININE 0.5 mg/dL (0.6-1.3); PHOSPHORUS 4.1 mg/dL (2.5-4.9); SODIUM SERUM 143.0 mmol/L (136-145); UREA NITROGEN, BLOOD 22.0 mg/dL (7-18)
[2025-05-16 08:00] VITALS: BP 110/67; TEMP 97.9; O2SAT 99
[2025-05-16] MEDS ORDERED: ASPI-1169 PO (10:24)
[2025-05-16] MEDS ORDERED: ATOR10TA PO (10:24)
[2025-05-16] MEDS ORDERED: CLOP75TA15 PO (10:24)
== END 2025-05-16 13:00 | disposition home or self-care (01) | DRG 422 ==
LOC: ER 00:46 → TELE 05:50 → MS IN 06:58 → TELE 07:45 → MED 05-16 10:31
PROVIDERS: ADMIT Student in an Organized Health Care Education/Training Program; ATTEND Student in an Organized Health Care Education/Training Program
DX: E86.0 Dehydration (principal); I25.10 Atherosclerotic heart disease of native coronary artery without angina pectoris; Z86.73 Personal history of transient ischemic attack (TIA), and cerebral infarction without residual deficits; Z20.822 Contact with and (suspected) exposure to COVID-19; Z98.890 Other specified postprocedural states; Y24.9XXS Unspecified firearm discharge, undetermined intent, sequela; Z79.899 Other long term (current) drug therapy; R79.89 Other specified abnormal findings of blood chemistry
CPT/HCPCS: 36415; 70450-TC; 70496-TC; 70498-TC; 70551-TC; 71045-TC; 80048-TC; 80061-TC; 80076-TC; 81001; 82607-TC; 82962-TC; 83735-TC; 84100-TC; 84443-TC; 84484-TC; 85025-TC; 85652-TC; 85730-TC; 92526; 92611; 93307-TC; 97110-TC; 97116-TC; 97530-TC; 97535-TC; G0378; J1650; J7050; Q9967

== ENCOUNTER 2025-06-06 21:58 | Emergency (ER) | payer MEDICAID ==
[~2025-06-06] VITALS: Ht 154.9 cm; Wt 81.6 kg
[~2025-06-06 21:58] MED LIST changes: -ACET-868 PO; +ASPI-1169 PO; +ATOR10TA PO; -CIPR-262 PO; +CLOP75TA15 PO; -CYCL5TAB PO; -IBUP-1955 PO; -IBUP-1957 PO; -LIDO30AD10 TP; +METH500T6 PO; -METR500T PO; -NAPR-1009 PO; -TRAM50TA2 PO
[2025-06-06 22:31] VITALS: TEMP 98.8
[2025-06-06 23:11] VITALS: BP 110/75; O2SAT 99
== END 2025-06-06 23:11 | disposition home or self-care (01) ==
LOC: ER 22:09
DX: R00.2 Palpitations (principal); Z79.02 Long term (current) use of antithrombotics/antiplatelets; Z79.82 Long term (current) use of aspirin